=== PATIENT | female | born 1960 | race Caucasian/White ===

== ENCOUNTER 2017-05-10 07:15 | Outpatient (CLI) | payer OTHER ==
[~2017-05-10 07:15] MED LIST: CEFTIN500 MG PO; COZAAR100 MG; COZAAR100 MG PO; GABAPENTIN100 MG; INTEGRA PLUS C1 EACH PO; LANTUS SOLOSTAR3 ML; Lantus 1000 U/10 ML SUBCUTANEO; NORVASC 5MG TAB PO; Neurontin PO; PNEU16DI2; SYNTHROID50 MCG; Synthroid PO; VASOFLEX FORTE1 CAP
== END 2017-05-10 07:21 | disposition home or self-care (01) ==
LOC: LAB 07:15
DX: N18.9 Chronic kidney disease, unspecified (principal)

== ENCOUNTER 2018-05-18 23:45 | Inpatient (IN) | payer OTHER ==
[~2018-05-18] VITALS: Ht 167.6 cm; Wt 86.2 kg
== END 2018-06-10 11:24 | disposition designated cancer center or children's hospital (05) | DRG 207 ==
LOC: ER 23:45 → ICU-2 05-19 13:00 → MEDI 05-24 08:44 → MEDJ 05-27 13:38
PROVIDERS: ADMIT Internal Medicine
PROC: 5A1955Z Respiratory Ventilation, Greater than 96 Consecutive Hours (ICD-10-PCS; 2018-05-19)
PROC: 0BH17EZ Insertion of Endotracheal Airway into Trachea, Via Natural or Artificial Opening (ICD-10-PCS; 2018-05-19)
PROC: 4A033R1 Measurement of Arterial Saturation, Peripheral, Percutaneous Approach (ICD-10-PCS; 2018-05-19)
PROC: 3E0F7GC Introduction of Other Therapeutic Substance into Respiratory Tract, Via Natural or Artificial Opening (ICD-10-PCS; 2018-05-19)
PROC: B246ZZZ Ultrasonography of Right and Left Heart (ICD-10-PCS; 2018-05-19)
PROC: BB24ZZZ Computerized Tomography (CT Scan) of Bilateral Lungs (ICD-10-PCS; 2018-05-19)
PROC: 0W9930Z Drainage of Right Pleural Cavity with Drainage Device, Percutaneous Approach (ICD-10-PCS; principal; 2018-05-20)
PROC: BW21ZZZ Computerized Tomography (CT Scan) of Abdomen and Pelvis (ICD-10-PCS; 2018-05-20)
PROC: 05HM33Z Insertion of Infusion Device into Right Internal Jugular Vein, Percutaneous Approach (ICD-10-PCS; 2018-05-23)
PROC: B513ZZA Fluoroscopy of Right Jugular Veins, Guidance (ICD-10-PCS; 2018-05-23)
PROC: 5A1D70Z Performance of Urinary Filtration, Intermittent, Less than 6 Hours Per Day (ICD-10-PCS; 2018-05-24)
PROC: 5A1D70Z Performance of Urinary Filtration, Intermittent, Less than 6 Hours Per Day (ICD-10-PCS; 2018-05-27)
PROC: 5A1D70Z Performance of Urinary Filtration, Intermittent, Less than 6 Hours Per Day (ICD-10-PCS; 2018-05-29)
PROC: 5A1D70Z Performance of Urinary Filtration, Intermittent, Less than 6 Hours Per Day (ICD-10-PCS; 2018-05-31)
PROC: 4A12X4Z Monitoring of Cardiac Electrical Activity, External Approach (ICD-10-PCS; 2018-06-03)
PROC: 5A1D70Z Performance of Urinary Filtration, Intermittent, Less than 6 Hours Per Day (ICD-10-PCS; 2018-06-03)
PROC: B246ZZZ Ultrasonography of Right and Left Heart (ICD-10-PCS; 2018-06-04)
PROC: 5A1D70Z Performance of Urinary Filtration, Intermittent, Less than 6 Hours Per Day (ICD-10-PCS; 2018-06-05)
PROC: 5A1D70Z Performance of Urinary Filtration, Intermittent, Less than 6 Hours Per Day (ICD-10-PCS; 2018-06-08)
DX: J90 Pleural effusion, not elsewhere classified (principal); N18.6 End stage renal disease; J96.01 Acute respiratory failure with hypoxia; I50.23 Acute on chronic systolic (congestive) heart failure; N17.8 Other acute kidney failure; L97.518 Non-pressure chronic ulcer of other part of right foot with other specified severity; I13.2 Hypertensive heart and chronic kidney disease with heart failure and with stage 5 chronic kidney disease, or end stage renal disease; I25.110 Atherosclerotic heart disease of native coronary artery with unstable angina pectoris; I73.89 Other specified peripheral vascular diseases; E03.8 Other specified hypothyroidism; D63.1 Anemia in chronic kidney disease; Z99.2 Dependence on renal dialysis; Z88.0 Allergy status to penicillin; E13.621 Other specified diabetes mellitus with foot ulcer
CPT/HCPCS: 32555; 36558; 77001; 76937; C1751

== ENCOUNTER 2018-09-06 02:38 | Emergency (ER) | payer OTHER ==
[~2018-09-06] VITALS: Ht 167.6 cm; Wt 68.0 kg
[2018-09-06] MEDS ORDERED: TOPROL XL25 M1 (03:00)
[2018-09-06] MEDS ORDERED: ALDACTONE25 MG (03:00)
[2018-09-06] MEDS ORDERED: LIPITOR80 MG (03:00)
[2018-09-06] MEDS ORDERED: PLAVIX75 MG (03:01)
[2018-09-06] MEDS ORDERED: PEPCID20 MG (03:01)
[2018-09-06] MEDS ORDERED: ASA81 MG (03:01)
[2018-09-06] MEDS ORDERED: LEVOTHYROXINE25 MCG (03:01)
== END 2018-09-06 11:13 | disposition designated cancer center or children's hospital (05) ==
LOC: ER 02:38
DX: T82.898A Other specified complication of vascular prosthetic devices, implants and grafts, initial encounter (principal); R50.82 Postprocedural fever; Z99.2 Dependence on renal dialysis; Y82.8 Other medical devices associated with adverse incidents; Y92.89 Other specified places as the place of occurrence of the external cause

== ENCOUNTER 2019-06-19 09:35 | Outpatient (CLI) | payer OTHER ==
[~2019-06-19 09:35] MED LIST changes: +ALDACTONE25 MG; +ASA81 MG; +LEVOTHYROXINE25 MCG; +LIPITOR80 MG; +PEPCID20 MG; +PLAVIX75 MG; +TOPROL XL25 M1
== END 2019-06-19 10:11 | disposition home or self-care (01) ==
LOC: WOUND MED 09:35
DX: E10.621 Type 1 diabetes mellitus with foot ulcer (principal); L97.511 Non-pressure chronic ulcer of other part of right foot limited to breakdown of skin
CPT/HCPCS: 11042; A4554; A4930; A6212; A6216; A6219

== ENCOUNTER 2019-06-26 07:43 | Outpatient (CLI) | payer OTHER | END 2019-06-26 08:53 | disposition home or self-care (01) | LOC: WOUND MED 07:43 | DX: E10.621 Type 1 diabetes mellitus with foot ulcer (principal); L97.511 Non-pressure chronic ulcer of other part of right foot limited to breakdown of skin | CPT/HCPCS: 11042; A4554; A4930; A6216; A6219 ==

== ENCOUNTER 2019-07-17 09:36 | Outpatient (CLI) | payer OTHER | END 2019-07-17 10:00 | disposition home or self-care (01) | LOC: WOUND MED 09:36 | DX: E10.621 Type 1 diabetes mellitus with foot ulcer (principal); L97.511 Non-pressure chronic ulcer of other part of right foot limited to breakdown of skin | CPT/HCPCS: 11042; A4554; A4930; A6212; A6216; A6219 ==

== ENCOUNTER 2019-07-24 07:23 | Outpatient (CLI) | payer OTHER | END 2019-07-24 08:33 | disposition home or self-care (01) | LOC: WOUND MED 07:23 | DX: E10.621 Type 1 diabetes mellitus with foot ulcer (principal); L97.511 Non-pressure chronic ulcer of other part of right foot limited to breakdown of skin | CPT/HCPCS: 11042; A4554; A4930; A6212; A6216; A6219 ==

== ENCOUNTER → 2019-08-21 10:33 | Outpatient (CLI) | payer OTHER | END | disposition home or self-care (01) | LOC: WOUND MED 07-31 07:15 | PROVIDERS: ATTEND Specialist | DX: E10.621 Type 1 diabetes mellitus with foot ulcer (principal); L97.512 Non-pressure chronic ulcer of other part of right foot with fat layer exposed | CPT/HCPCS: 11042; A4554; A4930; A6216; A6219 ==

== ENCOUNTER 2019-08-25 10:51 | Outpatient (CLI) | payer OTHER | END 2019-08-25 12:22 | disposition home or self-care (01) | LOC: WOUND MED 10:51 | PROVIDERS: ATTEND Specialist | DX: E10.621 Type 1 diabetes mellitus with foot ulcer (principal); L97.512 Non-pressure chronic ulcer of other part of right foot with fat layer exposed | CPT/HCPCS: 97602; A4554; A4930; A6216; A6219 ==

== ENCOUNTER 2019-08-27 10:09 | Outpatient (CLI) | payer OTHER | END 2019-08-27 10:30 | disposition home or self-care (01) | LOC: RAD 10:09 | DX: H43.13 Vitreous hemorrhage, bilateral (principal) ==

== ENCOUNTER 2019-08-28 10:13 | Outpatient (CLI) | payer OTHER | END 2019-08-28 12:07 | disposition home or self-care (01) | LOC: WOUND MED 10:13 | PROVIDERS: ATTEND Specialist | DX: E10.621 Type 1 diabetes mellitus with foot ulcer (principal); L97.512 Non-pressure chronic ulcer of other part of right foot with fat layer exposed | CPT/HCPCS: 11042; A4554; A4930; A6216; A6219 ==

== ENCOUNTER 2019-09-04 08:04 | Outpatient (CLI) | payer OTHER | END 2019-09-04 09:00 | disposition home or self-care (01) | LOC: WOUND MED 08:04 | PROVIDERS: ATTEND Specialist | DX: E10.621 Type 1 diabetes mellitus with foot ulcer (principal); L97.512 Non-pressure chronic ulcer of other part of right foot with fat layer exposed | CPT/HCPCS: 11042; A4554; A4930; A6216; A6219 ==

== ENCOUNTER 2019-09-11 08:48 | Outpatient (CLI) | payer OTHER | END 2019-09-11 09:55 | disposition home or self-care (01) | LOC: WOUND MED 08:48 | PROVIDERS: ATTEND Specialist | DX: E10.621 Type 1 diabetes mellitus with foot ulcer (principal); L97.512 Non-pressure chronic ulcer of other part of right foot with fat layer exposed | CPT/HCPCS: 11042; A4554; A4930; A6216; A6219 ==

== ENCOUNTER 2019-09-18 11:54 | Outpatient (CLI) | payer OTHER | END 2019-09-18 12:37 | disposition home or self-care (01) | LOC: WOUND MED 11:54 | PROVIDERS: ATTEND Specialist | DX: E10.621 Type 1 diabetes mellitus with foot ulcer (principal); L97.512 Non-pressure chronic ulcer of other part of right foot with fat layer exposed | CPT/HCPCS: 11042; A4554; A4930; A6216; A6219 ==

== ENCOUNTER 2019-10-16 11:28 | Outpatient (CLI) | payer OTHER | END 2019-10-16 12:12 | disposition home or self-care (01) | LOC: WOUND MED 11:28 | PROVIDERS: ATTEND Specialist | DX: E10.621 Type 1 diabetes mellitus with foot ulcer (principal); L97.512 Non-pressure chronic ulcer of other part of right foot with fat layer exposed | CPT/HCPCS: 11042; A4554; A4930; A6216; A6219 ==

== ENCOUNTER 2019-10-23 08:40 | Outpatient (CLI) | payer OTHER | END 2019-10-23 09:00 | disposition home or self-care (01) | LOC: WOUND MED 08:40 | PROVIDERS: ATTEND Specialist | DX: E10.621 Type 1 diabetes mellitus with foot ulcer (principal); L97.512 Non-pressure chronic ulcer of other part of right foot with fat layer exposed | CPT/HCPCS: 11042; A4554; A4930; A6216; A6219 ==

== ENCOUNTER 2019-10-30 08:04 | Outpatient (CLI) | payer OTHER | END 2019-10-30 11:00 | disposition home or self-care (01) | LOC: WOUND MED 08:04 | PROVIDERS: ATTEND Specialist | DX: E10.621 Type 1 diabetes mellitus with foot ulcer (principal); L97.512 Non-pressure chronic ulcer of other part of right foot with fat layer exposed | CPT/HCPCS: 11042; A4554; A4930; A6216; A6219 ==

== ENCOUNTER → 2019-11-06 | Outpatient (CLI) | payer OTHER | END | disposition home or self-care (01) | LOC: WOUND MED 07:35 | PROVIDERS: ATTEND Specialist | DX: E10.621 Type 1 diabetes mellitus with foot ulcer (principal); L97.512 Non-pressure chronic ulcer of other part of right foot with fat layer exposed | CPT/HCPCS: 11042; A4554; A4930; A6216; A6219 ==

== ENCOUNTER 2019-11-13 07:18 | Outpatient (CLI) | payer OTHER | END 2019-11-13 12:42 | disposition home or self-care (01) | LOC: WOUND MED 07:18 | PROVIDERS: ATTEND Specialist | DX: E10.621 Type 1 diabetes mellitus with foot ulcer (principal); L97.512 Non-pressure chronic ulcer of other part of right foot with fat layer exposed | CPT/HCPCS: 11042; A4554; A4930; A6216; A6219 ==

== ENCOUNTER 2019-11-20 10:30 | Outpatient (CLI) | payer OTHER | END 2019-11-20 11:00 | disposition home or self-care (01) | LOC: WOUND MED 10:30 | PROVIDERS: ATTEND Specialist | DX: E10.621 Type 1 diabetes mellitus with foot ulcer (principal); L97.512 Non-pressure chronic ulcer of other part of right foot with fat layer exposed | CPT/HCPCS: 11042; A4554; A4930; A6216; A6219 ==

== ENCOUNTER 2019-11-27 14:01 | Outpatient (CLI) | payer OTHER | END 2019-11-27 15:00 | disposition home or self-care (01) | LOC: WOUND MED 14:01 | PROVIDERS: ATTEND Specialist | DX: E10.621 Type 1 diabetes mellitus with foot ulcer (principal); L97.512 Non-pressure chronic ulcer of other part of right foot with fat layer exposed | CPT/HCPCS: 11042; A4554; A4930; A6216; A6219 ==

== ENCOUNTER 2019-12-04 08:05 | Outpatient (CLI) | payer OTHER | END 2019-12-04 11:18 | disposition home or self-care (01) | LOC: WOUND MED 08:05 | PROVIDERS: ATTEND Specialist | DX: E10.621 Type 1 diabetes mellitus with foot ulcer (principal); L97.512 Non-pressure chronic ulcer of other part of right foot with fat layer exposed | CPT/HCPCS: 11042; A4554; A4930; A6212; A6216; A6219 ==

== ENCOUNTER 2019-12-11 07:35 | Outpatient (CLI) | payer OTHER | END 2019-12-11 12:15 | disposition home or self-care (01) | LOC: WOUND MED 07:35 | PROVIDERS: ATTEND Specialist | DX: E10.621 Type 1 diabetes mellitus with foot ulcer (principal); L97.512 Non-pressure chronic ulcer of other part of right foot with fat layer exposed | CPT/HCPCS: 11042; A4554; A4930; A6216; A6219 ==

== ENCOUNTER 2019-12-25 07:53 | Outpatient (CLI) | payer OTHER | END 2019-12-25 09:00 | disposition home or self-care (01) | LOC: WOUND MED 07:53 | PROVIDERS: ATTEND Specialist | DX: E10.621 Type 1 diabetes mellitus with foot ulcer (principal); L97.512 Non-pressure chronic ulcer of other part of right foot with fat layer exposed | CPT/HCPCS: 11042; A4554; A4930; A6212; A6216; A6220 ==

== ENCOUNTER 2020-01-01 07:43 | Outpatient (CLI) | payer OTHER | END 2020-01-01 09:00 | disposition home or self-care (01) | LOC: WOUND MED 07:43 | PROVIDERS: ATTEND Specialist | DX: E10.621 Type 1 diabetes mellitus with foot ulcer (principal); L97.512 Non-pressure chronic ulcer of other part of right foot with fat layer exposed | CPT/HCPCS: 11042; A4554; A4930; A6216; A6219 ==

== ENCOUNTER 2020-01-08 07:40 | Outpatient (CLI) | payer OTHER | END 2020-01-26 10:00 | disposition home or self-care (01) | LOC: WOUND MED 07:40 | PROVIDERS: ATTEND Specialist | DX: E10.621 Type 1 diabetes mellitus with foot ulcer (principal); L97.512 Non-pressure chronic ulcer of other part of right foot with fat layer exposed | CPT/HCPCS: 11042; A4554; A4930; A6216; A6219 ==

== ENCOUNTER 2020-01-15 08:03 | Outpatient (CLI) | payer OTHER | END 2020-01-15 09:00 | disposition home or self-care (01) | LOC: WOUND MED 08:03 | PROVIDERS: ATTEND Specialist | DX: E10.621 Type 1 diabetes mellitus with foot ulcer (principal); L97.512 Non-pressure chronic ulcer of other part of right foot with fat layer exposed | CPT/HCPCS: 11042; 11045; A4554; A4930; A6216 ==

== ENCOUNTER 2020-01-20 12:07 | Outpatient (CLI) | payer OTHER | END 2020-01-20 13:00 | disposition home or self-care (01) | LOC: WOUND MED 12:07 | PROVIDERS: ATTEND Specialist | DX: E10.621 Type 1 diabetes mellitus with foot ulcer (principal); L97.512 Non-pressure chronic ulcer of other part of right foot with fat layer exposed | CPT/HCPCS: 97602; A4554; A4930; A6216; A6266 ==